=== PATIENT | female | born 1975 | race Caucasian/White ===

== ENCOUNTER → 2020-12-02 | Outpatient (CLI) | payer OTHER ==
--- NOTE | 2020-12-02 14:28 | RAD ---
XR SACRUM AND COCCYX 2+VIEWS, XR LUMBAR SPINE 4+V History: Reason: LOW BACK PAIN AFTER FALL ON MONDAY. / Spl. Instructions: / History: Comparison: None. Technique: 3 views of the coccyx and sacrum. 5 views of the lumbar spine. Findings: Rudimentary T12 ribs. Transitional L5 vertebral body with broad pseudoarticulating transverse process es. No spondylolisthesis or spondylolysis. No fracture or dislocation. Disc space narrowing and degenerat darian endplate changes at L4-L5. Disc space narrowing without degenerative endplate changes at L5-S1 ma y be developmental. Sacroiliac joints are normal normal alignment of the sacrum and coccyx. Pubic rami and hips are unrem arkable. Few pelvic phleboliths. Soft tissues are otherwise unremarkable. Impression: 1. Transitional lumbosacral anatomy. 2. No acute osseous abnormality of the lumbar spine, sacrum and coccyx. 3. Mild degenerative disc disease at L4-L5. Electronically signed by: Michael Felder MD (12/02/2020 2:25 PM) [facility]
== END ==
LOC: PMG 09:04
DX: M51.16 Intervertebral disc disorders with radiculopathy, lumbar region (principal); M48.061 Spinal stenosis, lumbar region without neurogenic claudication; M53.3 Sacrococcygeal disorders, not elsewhere classified; I87.8 Other specified disorders of veins
CPT/HCPCS: 72110; 72220